=== PATIENT | female | born 1970 | race Caucasian/White ===

== ENCOUNTER 2016-09-21 00:49 | Emergency (ER) | payer OTHER ==
[~2016-09-21] VITALS: Ht 160 cm; Wt 70.3 kg
[2016-09-21 00:49] VITALS: BP_SYST 113
[~2016-09-21 00:49] MED LIST: ESTR42.53 VG; LAMO200T2 PO; LEVO88TA2 PO; LIRA0.6P SQ; OLME20TA14 PO; RISP0.253 PO; RISP1TAB7 PO; VENL150C2 PO
[2016-09-21] MEDS ORDERED: CLINDAMYCIN HCL 150 MG CAPSULE PO ONE (01:30)
[2016-09-21] MEDS ORDERED: HYDROmorphone 2 MG/ML VIAL IM ONE (01:30)
[2016-09-21] MEDS ORDERED: LIDOCAINE 1% 10 MG/ML, 20 ML MDV INJ ONE (01:30)
[2016-09-21] MEDS ORDERED: DIPH-TET-PERTUS Vaccine 0.5 ML VIAL (ADACEL) I.M. ONE (01:30)
[2016-09-21 02:30] VITALS: BP_SYST 134
== END 2016-09-21 02:30 | disposition home or self-care (01) ==
LOC: SED 00:49
DX: L02.414 Cutaneous abscess of left upper limb (principal); L03.115 Cellulitis of right lower limb; I10 Essential (primary) hypertension; E03.9 Hypothyroidism, unspecified; F32.9 Major depressive disorder, single episode, unspecified; Z79.899 Other long term (current) drug therapy
CPT/HCPCS: 10060; 90471; 90715; 96372; 99284; J1170; J2001

== ENCOUNTER 2016-10-14 20:51 | Emergency (ER) | payer OTHER ==
[~2016-10-14] VITALS: Ht 162.6 cm; Wt 59.0 kg
[2016-10-14 21:04] VITALS: BP_SYST 124
[2016-10-14] MEDS ORDERED: KETOROLAC TROMETHAMINE 60 MG/2 ML VIAL IM ONE (22:30)
[2016-10-14] MEDS ORDERED: SODIUM BICARBONATE 8.4% VIAL 50 MEQ/50 ML VIAL INJ ONE (22:45)
[2016-10-14] MEDS ORDERED: LIDOCAINE 1% 10 MG/ML, 20 ML MDV IJ ONE (22:45)
[2016-10-14] MEDS ORDERED: fentaNYL CITRATE/PF 100 MCG/2 ML AMP IVP ONE (22:45)
[2016-10-14] MEDS ORDERED: MORPHINE SULFATE 10 MG/ML VIAL IM ONE (22:45)
[2016-10-14] MEDS ORDERED: DIPHENHYDRAMINE INJ 50 MG/ML VIAL IM ONE (22:45)
[2016-10-14] MEDS ORDERED: LIDOCAINE/EPI 2% 1:100000 20 ML VIAL IJ ONE (22:45)
[2016-10-14 23:48] VITALS: BP_SYST 135
== END 2016-10-14 23:48 | disposition home or self-care (01) ==
LOC: SED 20:51
DX: L02.413 Cutaneous abscess of right upper limb (principal); E11.9 Type 2 diabetes mellitus without complications; K21.9 Gastro-esophageal reflux disease without esophagitis; I10 Essential (primary) hypertension; F32.9 Major depressive disorder, single episode, unspecified; M79.7 Fibromyalgia; M19.90 Unspecified osteoarthritis, unspecified site
CPT/HCPCS: 10060; 76536; 81025; 96372; 99284; J1200; J2270; J1885